=== PATIENT | male | born 1995 | race Caucasian/White ===

== ENCOUNTER 2018-02-02 11:10 | Outpatient (CLI) | payer OTHER, SELFPAY ==
--- NOTE | 2018-02-02 11:10 | DI.REPORT_ITS ---
SYMPTOMS/DIAGNOSIS: CHEST TIGHTNESS, R07.89, SHORTNESS OF BREATH, POUNDING HEARTBEAT, R00.2 PA AND LATERAL CHEST: Comparison 09/24/16. The heart is normal in size. The lungs are clear. The mediastinal structures and pleura appear intact. CONCLUSION: Normal chest.
== END 2018-02-02 11:11 ==
PROVIDERS: PCP Nurse Practitioner; Visit Provider Nurse Practitioner
DX: R07.89 Other chest pain (principal); R00.2 Palpitations; R06.02 Shortness of breath
CPT/HCPCS: 71046

== ENCOUNTER 2018-02-03 03:34 | Outpatient (CLI) | payer OTHER, SELFPAY ==
[2018-02-03 08:36] LABS: Abs Immature Grans 0.02 k/cumm (0.0-0.09); Absolute Basophil Count 0.01 k/cumm (0.0-0.2); Absolute Eosinophil Count 0.08 k/cumm (0.0-0.7); Absolute Lymphocyte Count 1.94 k/cumm (1.2-3.4); Absolute Monocyte Count 0.43 k/cumm (0.11-0.7); Absolute Neutrophil Count 2.15 k/cumm (1.2-6.7); Basophils % 0.2; Eosinophils % 1.7; HCT 47.1 % (40.0-50.0); HGB 16.1 g/dL (13.5-17.5); Immature Grans % 0.4; Lymphocytes % 41.9; Mean Corp. HGB Concentration 34.2 g/dL (32.0-36.0); Mean Corpuscular Hemoglobin 29.3 pg (27.0-33.0); Mean Corpuscular Volume 85.8 fL (80-95); Mean Platelet Volume 10.7 fL (8.0-11.0); Monocytes % 9.3; Neutrophils % 46.5; Platelet Count 179 x1000/uL (130-400); RBC 5.49 m/cumm (4.50-6.00); RBC Distribution Width 12.8 % (11.8-14.1); White Blood Cell Count 4.63 k/cumm (4.4-10.8)
[2018-02-03 09:52] LABS: ALT 43 U/L (12-78); AST 21 U/L (15-37); Albumin 4.4 g/dL (3.4-5.0); Alkaline Phosphatase 51 U/L (46-116); Anion Gap 4.3 mmol/L (3-11); BUN 19 mg/dL (7-18); Bilirubin, Total 0.5 mg/dL (0.2-1.0); CO2 30.7 mmol/L (21.0-32.0); CREATININE 1.21 mg/dL (0.70-1.30); Chloride 105 mmol/L (98-107); Cholesterol 141 mg/dL (50-200); Glucose 91 mg/dL (70-100); HDL Cholesterol 51 mg/dL (40-60); LDL CHOLESTEROL 86 mg/dL (<100); Potassium 4.3 mmol/L (3.5-5.1); Sodium 140 mmol/L (136-145); Total Protein 7.4 g/dL (6.4-8.2); Triglyceride 52 mg/dL (30-150)
== END 2018-02-03 03:35 ==
PROVIDERS: PCP Nurse Practitioner; Visit Provider Nurse Practitioner
DX: R00.2 Palpitations (principal); R07.89 Other chest pain; Z13.220 Encounter for screening for lipoid disorders
CPT/HCPCS: 36415; 80053; 80061; 83721; 85025

== ENCOUNTER 2019-01-06 18:39 | Emergency (ER) | payer OTHER, SELFPAY ==
[2019-01-06 18:50] VITALS: BP 134/69; PULSE 107; RESP 12; TEMP 37.1; O2SAT 100
--- NOTE | 2019-01-06 18:58 | W.ED.GENAD ---
Discharge Plan Disposition Patient Disposition: HOME Condition: Improving Discharge Details Chief Complaint: Palpitatns Clinical Impression: Heart palpitations Primary Care Provider: Steph Mo ED Provider: Ned Calle Home Meds and New Rx's Prescriptions: Discontinued cephalexin [Keflex] 500 MG capsule 500 mg PO TID Qty: 21 RF: 0 Discharge Instructions Instructions: Palpitations (ED) Additional Instructions: Please call respiratory therapy outpatient services at [phone] to schedule your Holter Monitor. Home to rest this evening. I recommend you stop taking your pre-workout supplement, but may use readily available protein. Return if you have chest pain, palpitations, or any other acute concern Medical Decision Making 23-year-old male takes a pre-workout supplement, was lifting weights when he developed the abrupt onset of palpitations, he noted his fitness watch to have a heart rate of 202, felt weakness. He rested, then came to the emergency department and en route had resolution of the high heart rate and symptoms, now improved. He arrives with a normal sinus rhythm that is tachycardic at approximately 110. Likely he had an episode of SVT, now resolved. Must exclude cardiomegaly, thyroid abnormality, anemia. Placed on cardiac catheterization technologist, IV access established, referred for chest x-ray, EKG and laboratory testing, given 1 L fluid. Chest x-ray is unremarkable. Diagnostic laboratories are reassuring with unremarkable CBC, chemistries, TSH, troponin. Patient's improved with a liter of fluid. We will ask him to stop his pre-workout exercise supplements. I will order an outpatient Holter monitor. He will follow-up with Steph Mo for recheck. Lab Data Lab results reviewed: Yes I reviewed the patient's lab results. Laboratory Results - last 24 hr 01/06/19 01/06/19 19:10 19:10 WBC 6.84 RBC 5.46 Hgb 16.3 Hct 46.4 MCV 85.0 MCH 29.9 MCHC 35.1 RDW 12.5 Plt Count 199 MPV 10.8 Immature Gran % 0.3 Neutrophils % 53.5 Lymphocytes % 37.3 Monocytes % 7.3 Eosinophils % 1.5 Basophils % 0.1 Absolute Neutrophils 3.66 Absolute Lymphocytes 2.55 Absolute Monocytes 0.50 Absolute Eosinophils 0.10 Absolute Basophils 0.01 Sodium 140 Potassium 3.7 Chloride 102 Carbon Dioxide 27.4 Anion Gap 10.6 BUN 16 Creatinine 1.17 Estimated GFR/1.73 m2 >= 60.00 Glucose 100 Calcium 9.4 Magnesium 2.0 Total Bilirubin 0.3 AST 17 ALT 37 Alkaline Phosphatase 54 Troponin I < 0.05 Total Protein 8.2 Albumin 4.7 TSH 1.24 ECG Data Attestation: I personally reviewed and interpreted this ECG (s) as follows: Interpretation: Sinus tachycardia, the QRS is narrow, there is no ST segment elevation present HPI General Mode of arrival: ambulatory. Date/Time Provider Initiated Documentation: 01/06/19 18:39. Limitations to Documentation: no limitations. Information obtained by: patient. History of Present Illness 23 year old M presents to the emergency department with the chief complaint of High heart rate while working out at [employer], described as moderate, and is localized to the chest. Patient reports no radiation. Patient started experiencing this minute(s) and it has been now resolved. No relieving factors improve symptom(s), No exacerbating factors reported . Patient notes weakness; denies chest pain and syncope. Patient did receive the following treatments prior to arrival, none Related Data Allergies Allergy/AdvReac Type Severity Reaction Status Date / Time No Known Allergies Allergy Unverified 02/04/18 17:21 General Stated Complaint: Palpitatns LUNA: 3 Review of Systems Review of Systems 6 systems reviewed and otherwise negative FOR[facility]LY [facility] Medical History Acne vulgaris Asthma Dis/Sub/Maltracking patella, knee pain Varicella (08/08/98) Verruca vulgaris Surgical History Tooth extraction Family History Grandfather Heart disease Father Hypertensive disorder, systemic arterial Social History Smoking/Tobacco Use Status: Never Alcohol Intake: current Alcohol Intake frequency: 0-2 drinks per day Drug use: Never Substance use type: does not use Do you feel safe in your relationship?: Yes Exam Narrative Exam Narrative: GEN: awake, alert, oriented 3. Pleasant, well groomed, interactive. HEAD: Normocephalic, atraumatic ENT: Mucous membranes moist, oropharynx unremarkable, External ear exam unremarkable EYES: PERRL, EOMI NECK: Full ROM, no PAUL, no menigismus CHEST/RESP: Nontender, clear to auscultation bilateral, no wheeze/rhonchi/rales CARDIOVASCULAR: Regular tachycardic rhythm, no murmur, rub skyla. 2+ Rad pulse bilateral ABDOMEN: Soft, nontender, no mass. +Bowel sounds EXT: Full ROM, no edema, no rash Neuro: Grossly normal neurologic exam, conversant, interactive. Psych: Speech fluent, thoughts congruent, affect normal Course Vital Signs Temperature 37.1 C 01/06/19 18:50 Pulse 107 H 01/06/19 18:50 Respiratory Rate 12 01/06/19 18:50 Blood Pressure 134/69 01/06/19 18:50 Pulse Oximetry 100 01/06/19 18:50 Temperature 37.1 C 01/06/19 18:50 Temperature Source Temporal Artery Scan 01/06/19 18:50 Pulse 107 H 01/06/19 18:50 Respiratory Rate 12 01/06/19 18:50 Respiratory Effort 01/06/19 18:53 Blood Pressure 134/69 01/06/19 18:50 Blood Pressure Position Supine 01/06/19 18:50 Pulse Oximetry 100 01/06/19 18:50 Oxygen Delivery Method Room Air 01/06/19 18:50 Oxygen Flow Rate 0 01/06/19 18:50 Pain Level 0 01/06/19 18:50
--- NOTE | 2019-01-06 19:18 | DI.RAD_ITS ---
SYMPTOM/DIAGNOSIS: PALPITATIONS, HIGH HEART RATE PA AND LATERAL CHEST: The heart is normal in size. The lungs are clear. The mediastinal structures and pleura appear intact. CONCLUSION: Normal chest. No evidence of acute cardiopulmonary disease.
[2019-01-06] MEDS: Normal Saline 1,000 ML 1000 ML IV (19:21)
[2019-01-06 19:22] LABS: Abs Immature Grans 0.02 k/cumm (0.0-0.09); Absolute Basophil Count 0.01 k/cumm (0.0-0.2); Absolute Lymphocyte Count 2.55 k/cumm (1.2-3.4); Absolute Neutrophil Count 3.66 k/cumm (1.2-6.7); Basophils % 0.1; Eosinophils % 1.5; HCT 46.4 % (40.0-50.0); HGB 16.3 g/dL (13.5-17.5); Immature Grans % 0.3; Lymphocytes % 37.3; Mean Corp. HGB Concentration 35.1 g/dL (32.0-36.0); Mean Corpuscular Hemoglobin 29.9 pg (27.0-33.0); Mean Platelet Volume 10.8 fL (8.0-11.0); Monocytes % 7.3; Neutrophils % 53.5; Platelet Count 199 x1000/uL (130-400); RBC 5.46 m/cumm (4.50-6.00); RBC Distribution Width 12.5 % (11.8-14.1); White Blood Cell Count 6.84 k/cumm (4.4-10.8)
--- NOTE | 2019-01-06 19:27 | DI.VRAD_ITS ---
EXAM: XR Chest, 2 Views EXAM DATE/TIME: 01/06/2019 6:58 PM CLINICAL HISTORY: 23 years old, male; Other: Palpitations; Patient HX: Palpitaions for 45 minutes, patient was at the gym, non smoker. TECHNIQUE: Imaging protocol: XR of the chest, 2 views. COMPARISON: CR CHEST 2 VIEWS PA,LAT 02/02/2018 11:03 AM FINDINGS: Lungs: Lung mosley are clear. No infiltrates. Pulmonary vaculature normal. Pleural space: No pleural effusion. No pneumothorax. Heart/Mediastinum: Heart size normal. No mediastinal widening. Bones/joints: No acute osseous abnormalities are identified. Other findings: No tracheal shift. IMPRESSION: No acute thoracic process. No significant change from prior exam 02/02/2018. Dictated and Authenticated by: Parveen Perry MD. Ordering:PAVAN Marino MD
[2019-01-06 19:45] LABS: ALT 37 U/L (12-78); AST 17 U/L (15-37); Albumin 4.7 g/dL (3.4-5.0); Alkaline Phosphatase 54 U/L (46-116); Anion Gap 10.6 mmol/L (3-11); BUN 16 mg/dL (7-18); Bilirubin, Total 0.3 mg/dL (0.2-1.0); CO2 27.4 mmol/L (21.0-32.0); CREATININE 1.17 mg/dL (0.70-1.30); Calcium 9.4 mg/dL (8.5-10.1); Chloride 102 mmol/L (98-107); Glucose 100 mg/dL (70-100); Potassium 3.7 mmol/L (3.5-5.1); Sodium 140 mmol/L (136-145); TSH 1.24 uIU/mL (0.36-3.74); Total Protein 8.2 g/dL (6.4-8.2)
[2019-01-06 19:46] LABS: Troponin I < 0.05 ng/mL (0.00-0.06)
== END 2019-01-06 20:30 | disposition home or self-care (01) ==
PROVIDERS: Emergency Provider Emergency Medicine; PCP Nurse Practitioner
DX: R00.2 Palpitations (principal); R53.1 Weakness; R00.0 Tachycardia, unspecified
CPT/HCPCS: 36415; 80053; 93005; 96360; 99285; 71046; 83735; 84443; 84484; 85025; 93010; 99284

== ENCOUNTER 2019-02-26 01:50 | Outpatient (CLI) | payer OTHER, SELFPAY ==
--- NOTE | 2019-02-26 14:00 | MERGE_ITS ---
*[facility]* *[facility]* [address] [place] [address] Date of study: 02/26/2019 Transthoracic Echocardiography M-mode, complete 2D, complete spectral Doppler, and color Doppler *STUDY CONCLUSIONS* Summary: 1. Left ventricle: The cavity size was normal. Wall thickness was normal. Systolic function was normal. The estimated ejection fraction was 60-65%. Wall motion was normal; there were no regional wall motion abnormalities. 2. Right ventricle: The cavity size was normal. Systolic function was normal. 3. Inferior vena cava: The vessel was patent and normal in size. The respirophasic diameter changes were in the normal range (greater than or equal to 50%), consistent with normal central venous pressure. *PATIENT PRESENTATION* Height: 182.9cm (72in ) S/D Pressure: 116 / 60 Weight: 84.8kg (186.6lb ) BSA: 2.08m^2 Test start time: 02:10 PM. Test stop time: 02:45 PM. PERFORMING [facility] GUIDE DELEGATE RT Rolly (Holly)(CT), RDCS CONSULTING Steph Mo ORDERING Steph Mo REFERRING Steph Mo *PROCEDURE DATA* Procedure information: This study was interpreted by [facility]. Pertinent images and digital data are archived for permanent storage and are available for subsequent review. No prior study was available for comparison. Study status: Routine. Transthoracic echocardiography. M-mode, complete 2D, complete spectral Doppler, and color Doppler. A Transthoracic Echocardiogram was performed. Scanning was performed from the parasternal, apical, subcostal, and suprasternal notch acoustic windows. Images were obtained using an [id number] cardiac ultrasound machine. Image quality was adequate. Study completion: The patient tolerated the procedure well. There were no complications. History: PMH: Chest tightness pain,. Palpitations r07.89. *CARDIAC ANATOMY* Left ventricle: The cavity size was normal. Wall thickness was normal. Systolic function was normal. The estimated ejection fraction was 60-65%. Wall motion was normal; there were no regional wall motion abnormalities. Diastolic parameters were normal. There was no evidence of elevated ventricular filling pressure by Doppler parameters. Aortic valve: Trileaflet; normal thickness leaflets. Mobility was not restricted. Doppler: Transvalvular velocity was within the normal range. There was no stenosis. There was no significant regurgitation. VTI ratio of LVOT to aortic valve: 0.87. Valve area (VTI): 4.1cm^2. Indexed valve area (VTI): 2cm^2/m^2. Peak velocity ratio of LVOT to aortic valve: 0.77. Valve area (Vmax): 3.7cm^2. Indexed valve area (Vmax): 1.8cm^2/m^2. Mean velocity ratio of LVOT to aortic valve: 0.77. Valve area (Vmean): 3.7cm^2. Indexed valve area (Vmean): 1.8cm^2/m^2. Mean gradient (S): 3.5mm Hg. Peak gradient (S): 6.1mm Hg. Aorta: Aortic root: The aortic root was normal in size. Ascending aorta: The ascending aorta was normal in size. Mitral valve: Structurally normal valve. Mobility was not restricted. Doppler: Transvalvular velocity was within the normal range. There was no evidence for stenosis. There was trivial regurgitation. Valve area by pressure half-time: 4.6cm^2. Indexed valve area by pressure half-time: 2.2cm^2/m^2. Peak gradient (D): 2.4mm Hg. Left atrium: The atrium was normal in size. Right ventricle: The cavity size was normal. Systolic function was normal. Pulmonic valve: The pulmonary valve appears to be grossly normal. Doppler: Transvalvular velocity was within the normal range. There was no evidence for stenosis. There was trivial regurgitation. Tricuspid valve: Structurally normal valve. Doppler: Transvalvular velocity was within the normal range. There was no evidence for stenosis. There was trivial regurgitation. Pulmonary artery: The main pulmonary artery was normal-sized. Pulmonary systolic pressure was within the normal range, in the range of 25mm Hg to 30mm Hg. Right atrium: The atrium was normal in size. Pericardium: There was no pericardial effusion. Systemic veins: Inferior vena cava: Well visualized. The vessel was patent and normal in size. The respirophasic diameter changes were in the normal range (greater than or equal to 50%), consistent with normal central venous pressure. Baseline ECG: Normal sinus rhythm. Measurements Left ventricle Value Reference LV ID, ED, PLAX 5.2 cm 3.5 - 6.0 LV ID, ES, PLAX 3.1 cm 2.1 - 4.0 LV PW thickness, ED, PLAX 1.0 cm LV end-diastolic volume, 1-p A2C 156 ml LV ejection fraction, 1-p A2C 65 % LV end-diastolic volume, 1-p A4C 151 ml LV ejection fraction, 1-p A4C 64 % LV e', lateral 0.233 m/sec LV E/e', lateral 3 LV e', medial 0.139 m/sec LV E/e', medial 6 LV e', average 0.186 m/sec LV E/e', average 4 Ventricular septum Value Reference IVS thickness, ED, PLAX 0.9 cm LVOT Value Reference LVOT ID, A-P 2.5 cm LVOT area 4.8 cm^2 LVOT peak velocity, S 0.95 m/sec LVOT mean velocity, S 0.68 m/sec LVOT VTI, S 19.1 cm LVOT peak gradient, S 3.6 mm Hg LVOT mean gradient, S 2.1 mm Hg Stroke volume (SV), LVOT DP 91 ml Stroke index (SV/bsa), LVOT DP 44 ml/m^2 Aortic valve Value Reference Aortic valve peak velocity, S 1.2 m/sec Aortic valve mean velocity, S 0.9 m/sec Aortic valve VTI, S 22.0 cm Aortic mean gradient, S 3.5 mm Hg Aortic peak gradient, S 6.1 mm Hg VTI ratio, LVOT/AV 0.87 Aortic valve area, VTI 4.1 cm^2 Velocity ratio, peak, LVOT/AV 0.77 Aortic valve area, peak velocity 3.7 cm^2 Velocity ratio, mean, LVOT/AV 0.77 Aortic valve area, mean velocity 3.7 cm^2 Aortic valve area/bsa, mean velocity 1.8 cm^2/m^2 Aorta Value Reference Aortic root ID, ED 3.5 cm Ascending aorta ID, A-P, S 2.7 cm Left atrium Value Reference LA ID, A-P, ES 2.7 cm LA ID/bsa, A-P 1.3 cm/m^2 <=2.2 LA volume/bsa, ES, 1-p A4C 27 ml/m^2 LA volume, ES, 2-p 48 ml LA volume/bsa, ES, 2-p 23 ml/m^2 LA/aortic root ratio 0.76 Mitral valve Value Reference Mitral E-wave peak velocity 0.78 m/sec Mitral A-wave peak velocity 0.49 m/sec Mitral deceleration time 167 ms 150 - 230 Mitral pressure half-time 48 ms Mitral peak gradient, D 2.4 mm Hg Mitral E/A ratio, peak 1.59 Mitral valve area, PHT, DP 4.6 cm^2 Tricuspid valve Value Reference Tricuspid regurg peak velocity 2.6 m/sec Tricuspid peak RV-RA gradient 26.9 mm Hg Right atrium Value Reference RA area, ES, A4C 17.7 cm^2 8.3 - 19.5 Legend: (L) and (H) billy values outside specified reference range. I have personally reviewed the images and have reviewed and edited the reported findings. Electronically signed by Dc Apple 02/26/2019 15:18
== END 2019-02-26 02:10 ==
PROVIDERS: PCP Nurse Practitioner; Visit Provider Nurse Practitioner
DX: R07.89 Other chest pain (principal); R00.2 Palpitations
CPT/HCPCS: 93306

== ENCOUNTER 2021-05-16 13:32 | Outpatient (REF) | payer BC, SELFPAY ==
[2021-05-16 14:15] LABS: HCT 48.3 % (40.0-50.0); HGB 15.3 g/dL (13.5-17.5); MCH 27.5 pg (27.0-33.0); MCHC 31.7 % (32.0-36.0); MCV 86.9 fL (80-95); MPV 10.6 fL (8.0-11.0); Platelet Count 216 10^3/uL (130-400); RBC 5.56 10^6/uL (4.36-5.78); RDW-SD 41.1 fL; WBC 8.73 10^3/uL (4.4-10.8)
[2021-05-16 14:34] LABS: ALT 130 U/L (16-63); AST 45 U/L (15-37); Albumin 4.3 g/dL (3.4-5.0); Alkaline Phosphatase 52 U/L (46-116); Anion Gap 10.3 mmol/L (3-11); BUN 21 mg/dL (7-18); Bilirubin, Total 0.6 mg/dL (0.2-1.0); CO2 27.7 mmol/L (21.0-32.0); CREATININE 1.1 mg/dL (0.70-1.30); Calcium 9.4 mg/dL (8.5-10.1); Calculated LDL 138 mg/dL (<100); Chloride 101 mmol/L (98-107); Cholesterol 191 mg/dL (<200); Glucose 91 mg/dL (74-106); HDL Cholesterol 43 mg/dL (40-60); Potassium 4.3 mmol/L (3.5-5.1); Sodium 139 mmol/L (136-145); Total Protein 7.5 g/dL (6.4-8.2); Triglyceride 54 mg/dL (<150)
== END 2021-05-16 13:33 | disposition home or self-care (01) ==
LOC: LBN 13:32
PROVIDERS: PCP Nurse Practitioner; Visit Provider Nurse Practitioner
DX: Z00.00 Encounter for general adult medical examination without abnormal findings (principal); Z13.220 Encounter for screening for lipoid disorders
CPT/HCPCS: 80053; 80061; 85027